=== PATIENT | female | born 1970 ===

== ENCOUNTER 2019-11-16 07:59 | Day surgery (SDC) | payer MEDICARE ==
[2019-11-16] MEDS ORDERED: Lactated Ringers 1,000 ML IV ONE (15:29)
== END 2019-11-16 10:01 | disposition home or self-care (01) ==
LOC: SDC-PAIN 07:59
PROVIDERS: ATTEND Psychiatry & Neurology Pain Medicine
DX: Z53.9 Procedure and treatment not carried out, unspecified reason (principal); M70.62 Trochanteric bursitis, left hip; E11.9 Type 2 diabetes mellitus without complications
CPT/HCPCS: 82962